=== PATIENT | female | born 1955 | race Hispanic/Latino ===

== ENCOUNTER 2018-03-10 21:46 | Emergency (ER) | payer MEDICARE ==
[2018-03-10] MEDS ORDERED: CATAPRES PO ONE (22:36)
--- NOTE | 2018-03-10 22:40 | Emergency Department Report ---
ED General Adult HPI - General Chief complaint: High BP Stated complaint: HYPERTENSION Time Seen by Provider: 03/10/18 22:25 Source: patient, EMS Mode of arrival: Ambulatory Limitations: No Limitations - History of Present Illness Initial comments: Patient is 62 years old female with no significant past medical history except for arthritis. Patient presented to the ER complaining of 10 minutes episode of epistaxis and elevated blood pressure. Patient blood pressure is 187/96. Patient denied any headache, weakness numbness or tingling sensation. No fever. Patient stated that she's been taking it taking naproxen for her arthritis for years. - Related Data Allergies Allergy/AdvReac Type Severity Reaction Status Date / Time No Known Allergies Allergy Unverified 03/10/18 21:50 ED Review of Systems ROS: Stated complaint: HYPERTENSION Other details as noted in HPI Comment: All other systems reviewed and negative Constitutional: denies: chills, fever ENT: epistaxis Respiratory: denies: cough, orthopnea, shortness of breath, SOB with exertion, SOB at rest Cardiovascular: denies: chest pain, palpitations, dyspnea on exertion Gastrointestinal: denies: abdominal pain, nausea, vomiting, diarrhea, constipation, hematemesis, melena, hematochezia Neurological: denies: headache, weakness, numbness, paresthesias, confusion, abnormal gait ED Past Medical Hx - Past Medical History Previous Medical History?: No - Surgical History Past Surgical History?: Yes Additional Surgical History: Knee replacement, fused ankle, foot surgery - Social History Smoking Status: Never Smoker Substance Use Type: None ED Physical Exam - General Limitations: No Limitations General appearance: alert, in no apparent distress - Head Head exam: Present: atraumatic, normocephalic, normal inspection - Eye Eye exam: Present: normal appearance, PERRL - ENT ENT exam: Present: normal exam, normal orophraynx, mucous membranes moist, other (dried blood into the right nastril.) - Neck Neck exam: Present: normal inspection, full ROM. Absent: tenderness, meningismus, lymphadenopathy, thyromegaly - Respiratory Respiratory exam: Present: normal lung sounds bilaterally. Absent: respiratory distress, wheezes, rales, rhonchi, stridor, accessory muscle use, decreased breath sounds, prolonged expiratory - Cardiovascular Cardiovascular Exam: Present: regular rate, normal rhythm, normal heart sounds - GI/Abdominal GI/Abdominal exam: Present: soft, normal bowel sounds. Absent: distended, tenderness, guarding, rebound, rigid, organomegaly, mass, bruit, pulsatile mass , hernia - Extremities Exam Extremities exam: Present: normal inspection, full ROM, normal capillary refill - Back Exam Back exam: Present: normal inspection, full ROM. Absent: tenderness, CVA tenderness (R), CVA tenderness (L), muscle spasm, paraspinal tenderness, vertebral tenderness - Neurological Exam Neurological exam: Present: alert, oriented X3, CN II-XII intact, normal gait, reflexes normal - Skin Skin exam: Present: warm, intact, normal color ED Course Vital Signs 03/10/18 03/10/18 03/10/18 21:48 21:56 22:01 Temperature 98.2 F Pulse Rate 84 94 H 83 Respiratory 11 L 19 18 Rate Blood Pressure 186/76 174/74 O2 Sat by Pulse 97 97 Oximetry 03/10/18 03/10/18 03/10/18 22:06 22:16 22:30 Temperature 98.5 F Pulse Rate 82 79 Respiratory 16 15 Rate Blood Pressure 187/86 197/90 O2 Sat by Pulse 98 97 Oximetry 03/10/18 03/10/18 03/10/18 22:45 22:56 23:00 Temperature Pulse Rate 103 H 86 98 H Respiratory 20 16 Rate Blood Pressure 197/132 202/115 205/104 O2 Sat by Pulse 95 96 Oximetry 03/10/18 03/10/18 03/10/18 23:16 23:30 23:46 Temperature Pulse Rate 100 H 101 H 100 H Respiratory 17 20 20 Rate Blood Pressure 188/83 160/93 160/85 O2 Sat by Pulse 92 92 92 Oximetry 03/11/18 03/11/18 03/11/18 00:00 00:10 00:16 Temperature Pulse Rate 94 H 96 H 97 H Respiratory 16 16 14 Rate Blood Pressure 167/80 167/80 155/83 O2 Sat by Pulse 94 94 92 Oximetry 03/11/18 01:01 Temperature Pulse Rate 72 Respiratory Rate Blood Pressure 187/92 O2 Sat by Pulse Oximetry ED Medical Decision Making - Lab Data Result diagrams: 03/10/18 22:41 03/10/18 22:41 - Medical Decision Making Patient stated that she is feeling much better. Epistaxis completely stopped. Will start patient on lisinopril 20 mg daily. I advised patient to follow with her primary care physician. Also to return to the ER if her symptoms are not improving. Critical care attestation.: If time is entered above; I have spent that time in minutes in the direct care of this critically ill patient, excluding procedure time. ED Disposition Clinical Impression: Epistaxis, Malignant hypertension Disposition: TO HOME OR SELFCARE Is pt being admited?: No Condition: Stable Instructions: Epistaxis (ED), Hypertension (ED) Referrals: MYRIAM FABIAN MD [Primary Care Provider] - 3-5 Days
[2018-03-10 22:56] LABS: Basophils % (Auto) 0.5 % (0.0-1.8); Eosinophils # (Auto) 0.2 K/mm3 (0.0-0.4); Eosinophils % (Auto) 2.4 % (0.0-4.3); Hematocrit 33.2 % (30.3-42.9); Hemoglobin 11.2 gm/dl (10.1-14.3); Lymphocytes % (Auto) 23.5 % (13.4-35.0); Mean Corpuscular HGB Conc 34 % (30-34); Mean Corpuscular Hemoglobin 26 pg (28-32); Mean Corpuscular Volume 77 fl (79-97); Monocytes # (Auto) 0.7 K/mm3 (0.0-0.8); Monocytes % (Auto) 8.4 % (0.0-7.3); Platelet Count 243 K/mm3 (140-440); Red Blood Count 4.28 M/mm3 (3.65-5.03)
[2018-03-10 23:06] LABS: INR 0.89 (0.87-1.13)
[2018-03-10 23:07] LABS: Partial Thromboplastin Time 29.5 Sec. (24.2-36.6)
[2018-03-10 23:11] LABS: Alanine Aminotransferase 17 units/L (7-56); Albumin 3.9 g/dL (3.9-5); BUN/Creatinine Ratio 19; Blood Urea Nitrogen 15 mg/dL (7-17); Calcium 8.9 mg/dL (8.4-10.2); Hemolysis Index 21
[2018-03-11] MEDS ORDERED: HYDROGEN PEROXIDE TP ONE (00:30)
[2018-03-11] MEDS ORDERED: HYDROGEN PEROXIDE ONE (00:32)
[2018-03-11] MEDS ORDERED: CATAPRES ONE (00:55)
[2018-03-11] MEDS ORDERED: CATAPRES PO ONE (01:00)
[2018-03-11 01:55] VITALS: BP 143/74
== END 2018-03-11 01:55 | disposition home or self-care (01) ==
LOC: ED 21:46
DX: I10 Essential (primary) hypertension (principal); R04.0 Epistaxis
CPT/HCPCS: 36415; 80053; 85025; 85610; 85730